=== PATIENT | female | born 1975 | race American Indian/Alaskan Native ===

== ENCOUNTER 2017-05-12 01:56 | Emergency (ER) | payer OTHER ==
[~2017-05-12 01:56] MED LIST: IBUP-103 PO
[2017-05-12 02:00] VITALS: TEMP 36.5
[2017-05-12] MEDS ORDERED: CLR10 PO (02:25)
[2017-05-12 02:33] VITALS: O2SAT 96
[2017-05-12 02:38] LABS: HEMATOCRIT 40.3 % (37-47); MEAN CELL VOLUME 82.8 fL (80-100); MEAN CORPUSCULAR HEMOGLOBIN 28.1 pg (25-34); MEAN PLATELET VOLUME 10.1 fL (7.4-10.4); PLATELET COUNT 269 K/uL (130-400); RED BLOOD COUNT 4.87 M/uL (4.2-5.4); WHITE BLOOD COUNT 12.09 K/uL (4.8-10.8)
[2017-05-12 02:47] LABS: PARTIAL THROMBOPLASTIN RATIO 1.1; PROTHROMBIN TIME (PATIENT) 10.7 SECONDS (9.0-12.0)
[2017-05-12 02:55] LABS: ALT/SGPT 25 U/L (12-78); AST/SGOT 14 U/L (15-37); BLOOD UREA NITROGEN 21 mg/dl (7-18); BUN/CREATININE RATIO 26.1 (10-20); CALCIUM 9.1 mg/dl (8.5-10.1); CARBON DIOXIDE 26 mmol/L (21-32); CHLORIDE 104 mmol/L (98-107); CREATININE 0.79 mg/dl (0.60-1.20); GLUCOSE 99 mg/dl (70-99); POTASSIUM 3.6 mmol/L (3.5-5.1); SODIUM 136 mmol/L (136-145)
[2017-05-12] MEDS ORDERED: ALUMINUM/MAGNESIUM SUSP 30 ML UDC PO STA (02:56)
[2017-05-12 03:00] LABS: ALB/GLOB RATIO 0.9 (0.9-2); ALKALINE PHOSPHATASE 61 U/L (45-117); CKMB/CK RATIO 0.7 (0-3.0)
--- NOTE | 2017-05-12 03:43 | EMERGENCY ROOM VISIT NOTE ---
History Report prepared by Albina: Jose Rafael Adams Under the Supervision of: Dr. Mimi Rinaldi D.O. First contact with patient: 02:39 Chief Complaint: CARDIAC ASSESSMENT Stated Complaint: BACK ISSUE,FAST HEARTBEAT,HEARTBURN History of Present Illness The patient is a 42 year old female who presents to the Emergency Room with complaints of left sided chest tightness with some burning that began 3 days ago. She rates her pain a 6/10 in severity. She denies any known personal medical or family history of any cardiac, respiratory, or GI etiology. A couple of days ago, she began to have these chest symptoms which have never happened before. Her pain intermittently radiates through her body into her left shoulder. It does not radiate into her arms or jaw. She is short of breath secondary to her pain. Normally, the patient is active as is able to walk multiple miles. However, recently she has only been able to walk very small distances. Exertion and movement exacerbate her pain. She has been experiencing increased thirst, dry mouth, palpations, a mildly increased heart rate, and extremely cold feet. She denies any dizziness, lightheadedness, fevers, chills, cough, abnormal urinary symptoms, abnormal defecation symptoms, weakness, or numbness. She denies any recent trips or sick contacts. She takes allergy medication PRN without any other medications. Source of History: patient Onset: 3 days ago Position: chest (left) Symptom Intensity: 6/10 Quality: burning, other (Tightness) Timing: constant Modifying Factors (Worsening): exertion, movement Associated Symptoms: + SOB, No fevers, No chills, No cough, No melena, No hematochezia, No diarrhea, No urinary symptoms, No weakness, No numbness Note: She is having increased thirst, dry mouth, palpations, mild tachycardia, and cold feet. Review of Systems See HPI for pertinent positives & negatives. A total of 10 systems reviewed and were otherwise negative. Past Medical & Surgical No known chronic medical problems Family History Patient reports no known family medical history. Social History Smoking Status: Never Smoker Smokeless Tobacco Use: No Alcohol Use: none Drug Use: none Marital Status: Housing Status: lives with family Occupation Status: unemployed Current/Historical Medications Scheduled Loratadine (Claritin), 10 MG PO DAILY Allergies Coded Allergies: No Known Allergies (Unverified , 05/12/17) Physical Exam Vital Signs Date Time Temp Pulse Resp B/P (MAP) Pulse Ox O2 Delivery O2 Flow Rate FiO2 05/12/17 06:35 97 Room Air 05/12/17 06:34 88 20 130/78 97 Room Air 05/12/17 06:03 73 05/12/17 05:29 86 20 131/79 98 Room Air 05/12/17 04:24 79 18 124/68 97 Room Air 05/12/17 03:12 77 20 139/77 96 Room Air 05/12/17 02:33 96 Room Air 05/12/17 02:33 96 Room Air 05/12/17 02:16 96 Room Air 05/12/17 02:15 90 05/12/17 02:00 36.5 90 20 141/93 96 Room Air Physical Exam GENERAL: alert, well appearing, well nourished, no distress, non-toxic EYE EXAM: normal conjunctiva OROPHARYNX: no exudate, no erythema, lips, buccal mucosa, and tongue normal and mucous membranes are moist NECK: supple, no nuchal rigidity, no adenopathy, non-tender LUNGS: Clear to auscultation. Normal chest wall mechanics HEART: no murmurs, S1 normal and S2 normal ABDOMEN: abdomen soft, non-tender, normo-active bowel sounds, no masses, no rebound or guarding. BACK: Back is symmetrical on inspection and there is no deformity, no midline tenderness, no CVA tenderness. SKIN: no rashes and no bruising UPPER EXTREMITIES: upper extremities are grossly normal. LOWER EXTREMITIES: No pitting edema. NEURO EXAM: Normal sensorium, cranial nerves II-XII grossly intact, normal speech, no gross weakness of arms, no gross weakness of legs. Medical Decision & Procedures ER Provider Diagnostic Interpretation: Radiology results have been interpreted by the radiologist and reviewed by me. CTA CHEST: No PE No aortic dissection or aneurysm. Mild dependent atelectasis, otherwise lungs clear. No obvious bony abnormality. Radiologist: Niranjan Conrad M.D. Laboratory Results 05/12/17 02:10 05/12/17 02:10 Test 05/12/17 02:10 05/12/17 02:35 Red Blood Count 4.87 M/uL (4.2-5.4) Mean Corpuscular Volume 82.8 fL (80-100) Mean Corpuscular Hemoglobin 28.1 pg (25-34) Mean Corpuscular Hemoglobin Concent 34.0 g/dl (32-36) RDW Standard Deviation 39.3 fL (36.4-46.3) RDW Coefficient of Variation 13.0 % (11.5-14.5) Mean Platelet Volume 10.1 fL (7.4-10.4) Prothrombin Time 10.7 SECONDS (9.0-12.0) Prothromb Time International Ratio 1.0 (0.9-1.1) Activated Partial Thromboplast Time 27.5 SECONDS (21.0-31.0) Partial Thromboplastin Ratio 1.1 D-Dimer 390 ug/L FEU (0-500) Anion Gap 6.0 mmol/L (3-11) Estimated GFR () 105.5 Estimated GFR (Non- 91.0 BUN/Creatinine Ratio 26.1 (10-20) Calcium Level 9.1 mg/dl (8.5-10.1) Total Bilirubin 0.6 mg/dl (0.2-1) Aspartate Amino Transf (AST/SGOT) 14 U/L (15-37) Alanine Aminotransferase (ALT/SGPT) 25 U/L (12-78) Alkaline Phosphatase 61 U/L (45-117) Total Creatine Kinase 165 U/L (26-192) Creatine Kinase MB 1.2 ng/ml (0.5-3.6) Creatine Kinase MB Ratio 0.7 (0-3.0) Total Protein 8.2 gm/dl (6.4-8.2) Albumin 3.9 gm/dl (3.4-5.0) Globulin 4.3 gm/dl (2.5-4.0) Albumin/Globulin Ratio 0.9 (0.9-2) Bedside Troponin I < 0.030 ng/ml (0-0.045) Laboratory results per my review. Medications Administered Medications (Trade) Dose Ordered Sig/Bhavani Route Start Time Stop Time Status Last Admin Dose Admin Al Hydroxide/Mg Hydroxide (Maalox Susp) 30 ml NOW STAT PO 05/12/17 02:56 05/12/17 03:02 DC 05/12/17 03:11 30 ML Ketorolac Tromethamine (Toradol Inj) 15 mg NOW STAT IV 05/12/17 04:57 05/12/17 04:58 DC 05/12/17 05:29 15 MG ECG Indication: chest pain Rate (beats per minute): 91 Rhythm: normal sinus Findings: no acute ischemic change, other (Normal intervals, normal axis) ED Course 0239: The patient was evaluated in room B4. A complete history and physical exam was performed. 0256: Ordered Maalox Susp 30 ml PO 0437: I reevaluated the patient at this time. She is resting. 0457: Ordered Toradol Inj 15 mg IV 0645: Upon reevaluation, the patient is feeling better. I discussed the findings and the treatment plan with the patient. She verbalizes agreement and understanding. She was discharged home. Medical Decision Differential diagnoses includes but is not limited to acute coronary syndrome, myocardial infarction, pericarditis, pulmonary embolus, CHF, aortic dissection, pneumonia, pneumothorax, musculoskeletal, shingles, esophageal. Heart score 0 Patient well-appearing here no significant risk factors for ACS. Patient low risk [place], however given description of pain dimer added and was negative. Patient with persistent chest and back pain despite negative labs and chest x- ray, given description of exertional dyspnea as well, CT angio was pursued and was negative. Patient able to ambulate here following additional pain medication without any hypoxia or obvious increased work of breathing. Discussed with patient possible etiology of chest and shoulder pain, symptoms to watch and return for, follow-up with family doctor, she verbalized understanding was agreeable with plan. Patient's vital signs stable throughout , no hypoxia. Medication Reconcilliation Current Medication List: was personally reviewed by me Blood Pressure Screening Patient's blood pressure: Elevated blood pressure Blood pressure disposition: Elevated BP felt to be situational Impression Primary Impression: Chest pain Additional Impression: Shoulder pain, left Scribe Attestation The scribe's documentation has been prepared under my direction and personally reviewed by me in its entirety. I confirm that the note above accurately reflects all work, treatment, procedures, and medical decision making performed by me. Departure Information Dispostion Home / Self-Care Referrals Janette Horan D.O. (PCP) Forms IMPORTANT VISIT INFORMATION Patient Instructions My [facility] Additional Instructions Please follow up with your family doctor. Please avoid any strenuous activity or heavy lifting until you're feeling better. Please avoid acidic foods such as coffee, soda, tomato based foods, citrus fruits which could contribute to GERD. If you have any recurrent or worsening symptoms of chest pain, shoulder pain, back pain, develop trouble breathing, develop a worsening cough, fevers, dizziness, passing out, vomiting, fevers, or you've any other new concerns, please return the emergency room. Problem Qualifiers Primary Impression: Chest pain Chest pain type: unspecified Qualified Codes: R07.9 - Chest pain, unspecified Additional Impression: Shoulder pain, left Chronicity: acute Qualified Codes: M25.512 - Pain in left shoulder
[2017-05-12] MEDS ORDERED: KETOROLAC TROMETHAMINE 30 MG/ML VIAL IV STA (04:57)
[2017-05-12] MEDS ORDERED: OPTIRAY 320 IV PRN (05:00)
[2017-05-12 06:34] VITALS: BP 130/78; PULSE 88
[2017-05-12 06:35] VITALS: O2SAT 97
--- NOTE | 2017-05-12 06:52 | DIAGNOSTIC IMAGING REPORT ---
CHEST ONE VIEW PORTABLE CLINICAL HISTORY: chest pain history of COMPARISON STUDY: 2014 FINDINGS: The bones soft tissues and hemidiaphragms are normal. The cardiomediastinal silhouette is normal. The lungs are clear. The pulmonary vasculature is normal. IMPRESSION: Negative chest. The above report was generated using voice recognition software. It may contain grammatical, syntax or spelling errors. Electronically signed by: Fredy Saucedo M.D. 05/12/2017 6:50 AM Dictated Date/Time: 05/12/2017 6:48 AM
--- NOTE | 2017-05-12 07:01 | DIAGNOSTIC IMAGING REPORT ---
(CHEST FOR PE) ANGIO WITH CT DOSE: 409.22 mGy.cm HISTORY: Chest pain dyspnea TECHNIQUE: Multiaxial CT images of the chest were performed following the intravenous administration of contrast to evaluate the pulmonary arteries. Maximal intensity projection images were also obtained. A dose lowering technique was utilized adhering to the principles of ALARA. COMPARISON STUDY: None. FINDINGS: There is a normal caliber thoracic aorta with no evidence for dissection. There is no evidence for pulmonary embolus. No pleural effusions. No pneumothorax. The liver and spleen are unremarkable. No mediastinal or hilar lymphadenopathy. The central airways are patent. The lungs are clear. Slight images of the bibasilar interstitial change. IMPRESSION: No evidence for pulmonary embolus. Minimal bibasilar interstitial change. The above report was generated using voice recognition software. It may contain grammatical, syntax or spelling errors. Electronically signed by: Fredy Saucedo M.D. 05/12/2017 7:00 AM Dictated Date/Time: 05/12/2017 6:58 AM
== END 2017-05-12 06:55 | disposition home or self-care (01) ==
LOC: C.EDB 01:57
DX: R07.9 Chest pain, unspecified (principal); M25.512 Pain in left shoulder; Z79.899 Other long term (current) drug therapy

== ENCOUNTER 2017-09-07 20:07 | Emergency (ER) | payer OTHER ==
[~2017-09-07] VITALS: Ht 167.6 cm; Wt 89.4 kg
[~2017-09-07 20:07] MED LIST changes: +CLR10 PO; -IBUP-103 PO
[2017-09-07 20:21] VITALS: TEMP 36.4; Ht 167.6 cm; Wt 89.4 kg
[2017-09-07] MEDS ORDERED: RANITIDINE HCL 50 MG/100 ML D5W IV STA (21:45)
[2017-09-07] MEDS ORDERED: DiphenhydrAMINE HCL 50 MG/ML VIAL IV STA (21:45)
[2017-09-07] MEDS ORDERED: DEXAMETHASONE **PF** INJ 10 MG/ML VIAL IV ONE (21:45)
[2017-09-07] MEDS ORDERED: METH4PAK PO (22:52)
[2017-09-07 22:53] VITALS: BP 132/68; PULSE 82; O2SAT 99
--- NOTE | 2017-09-07 23:16 | EMERGENCY ROOM VISIT NOTE ---
History First contact with patient: 21:12 Chief Complaint: RASH Stated Complaint: RASH ON NECK, SPREADING TOWARDS FACE History of Present Illness The patient is a 42 year old female who presents to the Emergency Room with her daughter with complaints of a rash on the patient's neck and face. The patient does not speak fluent Ukrainian, and the daughter does, and is refusing interpretation services. The daughter reports that she noticed a rash on her neck yesterday upon awakening. It was a small dot at first, then started to spread and become itchy. The rash then started to spread up behind both ears, and now is extending onto the cheek bones. They did try to apply 1% hydrocortisone cream without any relief. The family is not aware of any new topical products, foods or drinks. The patient has had no other recent upper respiratory infections. She denies any pain or fever. She also does not notice any lip/tongue/throat swelling, palpitations, chest pain or shortness of breath. The patient has no other environmental allergies. Review of Systems A limited 6 system review was performed because of language barrier, with pertinent positives and negatives as indicated in HPI. Past Medical/Surgical History Medical Problems: (1) No significant past medical history Surgical Problems: (1) No history of previous surgery Family History FH: diabetes mellitus Social History Smoking Status: Never Smoker Alcohol Use: none Drug Use: none Marital Status: Housing Status: lives with family Occupation Status: unemployed Current/Historical Medications Scheduled Loratadine (Claritin), 10 MG PO DAILY Methylprednisolone (Medrol Dosepak), 0 PO DAILY Physical Exam Vital Signs Date Time Temp Pulse Resp B/P (MAP) Pulse Ox O2 Delivery O2 Flow Rate FiO2 09/07/17 22:53 82 15 132/68 99 09/07/17 20:21 36.4 78 18 135/84 96 Room Air Physical Exam CONSTITUTIONAL: Healthy and well nourished. Patient does not appear in any acute distress. HEENT: Normocephalic, atraumatic. Pupils equal, round and reactive. No facial edema noted. No scleral icterus or conjunctival injection. NECK: Full active range of motion without discomfort. No nuchal rigidity. LYMPHATICS: No obvious cervical chain adenopathy. RESPIRATORY: Clear to auscultation bilaterally with no wheezing, crackles, rhonchi or stridor. CARDIOVASCULAR: Regular rate and rhythm with no murmurs, rubs or gallops. MUSCULOSKELETAL: Full range of motion of all joints without discomfort. INTEGUMENTARY: Examination shows an erythematous raised rash on the anterior neck and under the jaw. She also has similar distribution across the mallar region. No vesicles or pustules noted. No desquamation or induration. The rash does erwin with pressure. NEUROLOGIC: No focal neurologic deficits noted. Medical Decision & Procedures Medications Administered Medications (Trade) Dose Ordered Sig/Bhavani Route Start Time Stop Time Status Last Admin Dose Admin Diphenhydramine HCl (Benadryl Inj) 50 mg NOW STAT IV 09/07/17 21:45 09/07/17 21:48 DC 09/07/17 22:06 50 MG Ranitidine HCl (zANTac IV) 50 mg NOW STAT IV 09/07/17 21:45 09/07/17 21:48 DC 09/07/17 22:10 50 MG Dexamethasone Sodium Phosphate (Dexamethasone Inj Pf) 10 mg NOW ONCE IV 09/07/17 21:45 09/07/17 21:48 DC 09/07/17 22:06 10 MG ED Course Patient history and physical exam were performed. Majority of the exam was performed by our female physician rehabilitation assistant student. Nurse's notes were reviewed. Vital signs were reviewed and were normal. The patient does appear in moderate discomfort from pruritus. I did suggest establishing an IV for IV treatment, and both the patient and daughter agreed. IV access was established. The patient was administered IV Benadryl, Zantac and Decadron. Within a half hour, the patient reported significant relief of her symptoms, and felt well enough for discharge. The patient will be provided a prescription for a Medrol Dosepak to be started on Tuesday morning. I did encourage her to alternate Benadryl and Zantac for additional relief. An ice pack was provided, and the patient was encouraged to avoid hot showers or heat. She was encouraged to follow-up with her PCP if symptoms are not improving within the next several days. Return to the emergency department for worsening symptoms, or if she starts to develop any symptoms consistent with angioedema or difficulty swallowing. The patient and daughter were happy with plan of care. Medical Decision Exact etiology for this reaction is unknown. The family denies any new topical products or ingested foods/drinks. She has had no recent infection to suggest viral etiology. Examination does not show any other emergent findings to warrant hospitalist evaluation. Examination is consistent with a histamine reaction. Medication Reconcilliation Current Medication List: was personally reviewed by me Blood Pressure Screening Patient's blood pressure: Normal blood pressure Impression Primary Impression: Hives of unknown origin Departure Information Dispostion Home / Self-Care Prescriptions Methylprednisolone (MEDROL DOSEPAK) 4 Mg Max 0 PO DAILY, #1 PKT Prov: Bam Baird PA 09/07/17 Forms HOME CARE DOCUMENTATION FORM, IMPORTANT VISIT INFORMATION Patient Instructions My [facility], ED [facility] Additional Instructions Take Medrol Dosepak as prescribed, next dose on Tuesday morning. Benadryl 25-50 mg every 6 hrs PLUS Zantac 150 mg every 12 hrs. Suggest taking this for the next 48 hours. Intermittently apply an ice pack for relief of localized swelling and itch. Keep cool - no hot showers. Follow-up with your family doctor if symptoms persist. Return to the emergency department for any significantly worsening symptoms, including involvement of the face, mouth or throat, or if you develop any palpitations or difficulty breathing.
== END 2017-09-07 23:01 | disposition home or self-care (01) ==
LOC: C.EDB 20:08 → C.EDD 23:01
DX: L50.9 Urticaria, unspecified (principal); Z79.899 Other long term (current) drug therapy; Z83.3 Family history of diabetes mellitus